=== PATIENT | female | born 1980 | race Caucasian/White ===

== ENCOUNTER 2016-07-26 14:18 | Emergency (ER) | payer MEDICAID, OTHER ==
[2016-07-26 14:58] VITALS: BP 133/75
--- NOTE | 2016-07-26 16:26 | UC ---
Eye Complaint HPI - HPI Summary HPI Summary: Patient has been treated for an infected eye lid a few weeks ago. She has a bump on the right upper eyelid. she is here for follow up becasue the bump is still there, no erythema or swelling present - History of Current Complaint Chief Complaint: UCSkin Stated Complaint: RT EYE PAIN Time Seen by Provider: 07/26/16 16:15 Hx Obtained From: Patient Hx Last Menstrual Period: 07/13/16 ?: No Onset/Duration: Sudden Onset, Lasting Days Timing: Constant Severity Initially: Mild Severity Currently: Mild Location of Injury: Eye Lid (upper) Aggravating Factor(s): Nothing Alleviating Factor(s): Nothing Associated Signs And Symptoms: Positive: Negative - Allergies/Home Medications Allergies/Adverse Reactions: Allergies Allergy/AdvReac Type Severity Reaction Status Date / Time seasonal Allergy Eyes Uncoded 07/26/16 14:58 Itchy/Swollen/Red/Watery PMH/Surg Hx/FS Hx/Imm Hx Previously Healthy: Yes Endocrine History Of: Reports: Thyroid Disease - thyroid nodules Denies: Diabetes Cardiovascular History Of: Denies: Cardiac Disorders, Hypertension, Pacemaker/ICD Respiratory History Of: Reports: Asthma, Bronchitis, Pneumonia Denies: COPD GI/ History Of: Denies: Ulcer - Surgical History Surgical History: Yes Surgery Procedure, Year, and Place: 2005, [facility]. D&C 04/2016 - Family History Known Family History: Positive: Hypertension, Diabetes - Social History Alcohol Use: None Substance Use Type: None Smoking Status (MU): Never Smoked Tobacco Review of Systems Constitutional: Negative Skin: Negative Eyes: Other - bump on eye lid ENT: Negative Respiratory: Negative Cardiovascular: Negative Gastrointestinal: Negative Genitourinary: Negative Motor: Negative Neurovascular: Negative Musculoskeletal: Negative Neurological: Negative Psychological: Negative All Other Systems Reviewed And Are Negative: Yes Physical Exam Triage Information Reviewed: Yes Appearance: Well-Appearing, Well-Nourished, Pain Distress Vital Signs: Initial Vital Signs Temp 97.8 F 07/26/16 14:52 Pulse 60 07/26/16 14:52 Resp 16 07/26/16 14:52 BP 133/75 07/26/16 14:52 Pulse Ox 100 07/26/16 14:52 Vital Signs Reviewed: Yes Eye Exam: Normal Eyes: Positive: Other: - no drainage, visible palpable cyst on upper eyelid, non tender ENT Exam: Normal ENT: Positive: Normal ENT inspection, Hearing grossly normal, Pharynx normal, TMs normal Dental Exam: Normal Neck exam: Normal Neck: Positive: Supple, Nontender, No Lymphadenopathy Respiratory Exam: Normal Respiratory: Positive: Chest non-tender, Lungs clear, Normal breath sounds Cardiovascular Exam: Normal Cardiovascular: Positive: RRR, No Murmur, Pulses Normal Abdominal Exam: Normal Abdomen Description: Positive: Nontender, No Organomegaly, Soft Bowel Sounds: Positive: Present Musculoskeletal Exam: Normal Musculoskeletal: Positive: Strength Intact, ROM Intact, No Edema Neurological Exam: Normal Neurological: Positive: Alert, Muscle Tone Normal Psychological Exam: Normal Skin Exam: Normal Eye Complaint Course/Dx - Course Course Of Treatment: hx obtained, exam performed, education provided for treatment of cysts, abx prescribed to be started should redness and swelling return, recommend follow up with PCP - Differential Dx/Diagnosis Differential Diagnosis/HQI/PQRI: Conjunctivitis, Periorbital Cellulitis, Orbital Cellulitis, Other Provider Diagnoses: chalazion Discharge - Discharge Plan Condition: Stable Disposition: HOME Prescriptions: Cephalexin CAP* [Keflex CAP*] 500 mg PO BID #14 cap Patient Education Materials: Chalazion (ED) Referrals: Shanique Esparza MD [Primary Care Provider] - Additional Instructions: COntinue with the hot compresses twice a day. If you develop more swelling or redness of the eye lid, start the prescribed antibiotic. FOllow up with PCP for any sign of infection or irritation.
== END 2016-07-26 16:33 | disposition home or self-care (01) ==
LOC: UCCORT 14:18
DX: H00.11 Chalazion right upper eyelid (principal)
CPT/HCPCS: 99212; G0463

== ENCOUNTER 2017-03-17 10:38 | Emergency (ER) | payer MEDICAID ==
[2017-03-17 11:33] VITALS: BP 131/87
--- NOTE | 2017-03-17 11:51 | UC ---
Respiratory Complaint HPI - HPI Summary HPI Summary: Pt c/o cough and SOB X 7 days. - History of Current Complaint Stated Complaint: COUGH,SOB,MAXIMILIANO Time Seen by Provider: 03/17/17 11:27 Hx Obtained From: Patient Hx Last Menstrual Period: 03/06/2017 ?: No Onset/Duration: Gradual Onset, Lasting Days - 7, Still Present Timing: Intermittent Episodes Severity Initially: Mild Severity Currently: Mild Character: Cough: Nonproductive Aggravating Factors: Exertion, Deep Breaths Alleviating Factors: Nothing Associated Signs And Symptoms: Positive: URI Related History: Seasonal Allergies - Risk Factors Pulmonary Embolism Risk Factors: Negative Cardiac Risk Factors: Negative Pseudomonas Risk Factors: Negative Tuberculosis Risk Factors: Negative - Allergies/Home Medications Allergies/Adverse Reactions: Allergies Allergy/AdvReac Type Severity Reaction Status Date / Time seasonal Allergy Eyes Uncoded 03/17/17 11:32 Itchy/Swollen/Red/Watery PMH/Surg Hx/FS Hx/Imm Hx Previously Healthy: Yes - Surgical History Surgical History: Yes Surgery Procedure, Year, and Place: 2005, [facility]. D&C 04/2016 - Family History Known Family History: Positive: Hypertension, Diabetes - Social History Occupation: Employed Full-time Lives: With Family Alcohol Use: None Substance Use Type: None Smoking Status (MU): Never Smoked Tobacco Have You Smoked in the Last Year: No - Immunization History Most Recent Influenza Vaccination: not current Vaccination Up to Date: No Review of Systems Constitutional: Negative Skin: Negative Eyes: Negative ENT: Negative Respiratory: Shortness Of Breath, Cough Cardiovascular: Negative Gastrointestinal: Negative Genitourinary: Negative Motor: Negative Neurovascular: Negative Musculoskeletal: Negative Neurological: Negative Psychological: Negative Is Patient Immunocompromised?: No All Other Systems Reviewed And Are Negative: Yes Physical Exam Triage Information Reviewed: Yes Appearance: Well-Appearing Vital Signs: Initial Vital Signs Temp 97.9 F 03/17/17 11:28 Pulse 97 03/17/17 11:28 Resp 18 03/17/17 11:28 BP 131/87 03/17/17 11:28 Pulse Ox 100 03/17/17 11:28 Eye Exam: Normal ENT Exam: Other ENT: Positive: Nasal congestion Dental Exam: Normal Neck exam: Normal Respiratory Exam: Other Respiratory: Positive: Wheezing - right middle lobe Cardiovascular Exam: Normal Musculoskeletal Exam: Normal Neurological Exam: Normal Psychological Exam: Normal Skin Exam: Normal UC Diagnostic Evaluation - Laboratory O2 Sat by Pulse Oximetry: 100 Respiratory Course/Dx - Differential Dx/Diagnosis Differential Diagnosis/HQI/PQRI: Bronchitis, Influenza Provider Diagnoses: reactive airway disease Discharge - Discharge Plan Condition: Stable Disposition: HOME Prescriptions: Benzonatate CAP* [Tessalon 100 MG CAP*] 100 mg PO Q8H PRN #30 cap PRN Reason: Cough methylPREDNISolone TAB* [Medrol TAB*] 4 - 8 mg PO .SEE MATHEUS #1 matheus Patient Education Materials: Reactive Airways Disease (ED) Referrals: Shanique Esparza MD [Primary Care Provider] - If Needed
== END 2017-03-17 11:58 | disposition home or self-care (01) ==
LOC: UCCORT 10:38
DX: J45.909 Unspecified asthma, uncomplicated (principal)
CPT/HCPCS: 99211; G0463

== ENCOUNTER 2017-08-16 07:14 | Emergency (ER) | payer MEDICAID ==
--- OUTSIDE RECORDS SUMMARY | 2017-08-16 07:20 | XMS REPORT ---
:1980 External Reference #:[id number] Author Organization [facility] Address [address], [address] [place] [address] Phone [phone] Care Team Providers Name Role Phone Zain Aparicio MD Care Team Information Garbage Worker Unavailable Shanique Eng MD Primary Care Physician Unavailable Payers Type Date Identification Numbers Payment Provider Subscriber Commercial Policy Number: [id number] [facility] Nyla Heredia PayID: [id number] [address] [place] [address] Problems Description No Information Family History Date Family Member(s) Problem(s) Comments Mother IBS Social History Type Date Description Comments Marital Status Home Environment Lives With spouse 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 Smokeless Tobacco Never Used Smokeless Tobacco ETOH Use Never used alcohol Smoking Patient has never smoked Recreational Drug Use Denies Drug Use Daily Caffeine Current Caffeine User # 2 20ounces soda daily Allergies, Adverse Reactions, Alerts Date Description Reaction Status Severity Comments 08/06/2017 NKDA active Medications Medication Date Status Form Strength Qnty SIG Indications Ordering Provider Fluticasone / Active Suspension 50mcg/Act 1 spray Unknown Propionate 0000 to each nare every day Ibuprofen /00/ Active Tablets 400mg take one Unknown 0000 to two tablets by mouth every 6 hours as needed Sertraline HCL 00/ Active Tablets 25mg 1 by Unknown 0000 mouth every day Loratadine 00/ Active Capsules 10mg 1 by Unknown 0000 mouth every day Multivitamin 00/00/ Active Tablets 1 by Unknown Adults 0000 mouth every day Protonix / Active Tablets DR 40mg 1 by Unknown 0000 mouth every day Minocycline / Active Capsules 100mg 1 po Unknown HCL 0000 daily Buspirone HCL / Hx Tablets 7.5mg 1/2 tab Unknown 0000 by mouth twice a day Vistaril / Hx Capsules 50mg 1 cap by Unknown 0000 mouth @ hs Nexium / Hx Capsules DR 40mg 1 by Unknown 0000 mouth every day Synthroid / Hx Tablets 50mcg 1 by Unknown 0000 mouth every day KLS Aller-Hal / Hx Tablets ER 5-120mg 1 po bid Unknown D 0000 12HR Cymbalta / Hx Caps DR Part 60mg 1 by Unknown 0000 mouth every day Vital Signs Date Vital Result Comment 08/14/2017 BP Systolic Sitting Left Arm 138 mmHg BP Diastolic Sitting Left Arm 100 mmHg Heart Rate 90 /min Respiratory Rate 16 /min Height 69 inches 5'9" Weight 240.00 lb BMI (Body Mass Index) 35.4 kg/m2 BSA (Body Surface Area) 2.23 m2 Ray body weight in kilograms 66 Results Description No Information Procedures Description No Information Plan of Care Future Appointment(s):09/16/2017 10:30 am - Zain Aparicio MD at [facility]08/14/2017 - Zain Aparicio MDK21.9 Gastro-esophageal reflux disease without esophagitisComments:history of Schatzki ringEGD to rule out Barrettsdilation of schatzki ring
[2017-08-16 07:33] VITALS: BP 131/90
--- NOTE | 2017-08-16 07:46 | UC ---
Headache HPI - HPI Summary HPI Summary: Frontal headache started 4 days ago. Did fall that day, but did not hit her head. Worse last night with nausea. Better with exedrine. No fevers sweats chills. Allergies are a little worse. - History Of Current Complaint Chief Complaint: UCHeadache Stated Complaint: SP FALL-VALENTIN*4DAYS/CONGESTION Time Seen by Provider: 08/16/17 07:38 Hx Obtained From: Patient Hx Last Menstrual Period: 08/10/17 ?: No Onset/Duration: Sudden Onset, Lasting Days - 4, Worse Since - last night Onset Of Symptoms: Still Present Currently Pain Is: Moderate Pain Intensity: 3 Timing: Constant Character: Dull, Pressure Location of Headache: Frontal Aggravating Factor(s): Bright Lights Allevating Factor(s): Medication Associated Signs And Symptoms: Positive: Nausea, Sinus Pressure. Negative: Seizure, Vomiting - Risk Factors SAH Risk Factors: Negative Meningitis Risk Factors: Negative - Allergies/Home Medications Allergies/Adverse Reactions: Allergies Allergy/AdvReac Type Severity Reaction Status Date / Time seasonal Allergy Eyes Uncoded 08/16/17 07:25 Itchy/Swollen/Red/Watery Home Medications: Home Medications Acetaminophen TAB* [Tylenol TAB*] 325 mg PO Q4H PRN 08/16/17 [History Confirmed 08/16/17] Fluticasone NASAL SPRAY 50MCG* [Flonase NASAL SPRAY 50MCG*] 2 spray BOTH NARES DAILY 08/16/17 [History Confirmed 08/16/17] Guaifenesin/Pseudo 600/60(NF) [Mucinex D 600/60 (NF)] 1 tab PO BID 08/16/17 [ History Confirmed 08/16/17] Ibuprofen TAB* [Advil TAB*] 200 mg PO Q6H PRN 08/16/17 [History Confirmed ] Loratadine [Claritin 10 MG CAP] 10 mg PO DAILY 08/16/17 [History Confirmed 08/16] Pseudoephedrine TAB* [Sudafed TAB*] 60 mg PO BID 08/16/17 [History Confirmed ] PMH/Surg Hx/FS Hx/Imm Hx Endocrine History: Thyroid Disease Respiratory History: Asthma - Surgical History Surgical History: Yes Surgery Procedure, Year, and Place: 2005, [facility]. D&C 04/2016 - Family History Known Family History: Positive: Hypertension, Diabetes - Social History Occupation: Employed Full-time Lives: With Family Alcohol Use: None Substance Use Type: None Smoking Status (MU): Never Smoked Tobacco Have You Smoked in the Last Year: No - Immunization History Most Recent Influenza Vaccination: not current Vaccination Up to Date: No Review of Systems ENT: Nasal Discharge, Sinus Congestion Is Patient Immunocompromised?: No All Other Systems Reviewed And Are Negative: Yes Physical Exam Triage Information Reviewed: Yes Appearance: Well-Appearing, No Pain Distress, Well-Nourished Vital Signs: Initial Vital Signs Temp 98.0 F 08/16/17 07:23 Pulse 66 08/16/17 07:23 Resp 20 08/16/17 07:23 BP 131/90 08/16/17 07:23 Pulse Ox 100 08/16/17 07:23 Vital Signs Reviewed: Yes Eyes: Positive: Conjunctiva Clear ENT: Positive: Pharynx normal, Nasal congestion - with allergic changes, TMs normal Dental Exam: Normal Neck: Positive: Supple, Nontender, Other: - thyromegaly Respiratory: Positive: Lungs clear, Wheezing - just with coughing Cardiovascular Exam: Normal Musculoskeletal Exam: Normal Neurological Exam: Normal Psychological Exam: Normal Skin Exam: Normal Headache Course/Dx - Differential Dx/Diagnosis Differential Diagnosis/HQI/PQRI: Migraine, Sinus Headache, Tension Headache Provider Diagnoses: Allergic rhinitis. Sinus headache. Migraine headache Discharge - Sign-Out/Discharge Documenting (check all that apply): Discharge - Discharge Plan Condition: Stable Disposition: HOME Prescriptions: Montelukast Sodium TAB* [Singulair 10 MG TAB*] 10 mg PO BEDTIME #30 tab Patient Education Materials: Allergic Rhinitis (ED), Migraine Headache (ED) Referrals: Shanique Esparza MD [Primary Care Provider] - Additional Instructions: NEILMED SINUS RINSE: CHECK OUT AT [employer] Saline nasal wash helps with mucous, allergies and congestion. It can be used up to twice a day or only as needed. Use lukewarm tap water. It does not have to be sterilized or distilled water. Do 1/3 on each side and snort out of both nostrils. Repeat the process with 1/6 of the bottle on each side with snorting in between to finish the solution in the bottle Do the fluticasone nasal spray 30-45 minutes after the sinus rinse. Make sure to tilt head down when doing the spray. - Billing Disposition and Condition Condition: STABLE Disposition: HOME
== END 2017-08-16 08:09 | disposition home or self-care (01) ==
LOC: UCCORT 07:14
DX: J30.9 Allergic rhinitis, unspecified (principal); G44.89 Other headache syndrome; G43.909 Migraine, unspecified, not intractable, without status migrainosus
CPT/HCPCS: 99212; G0463